=== PATIENT | female | born 1960 | race Caucasian/White ===

== ENCOUNTER 2023-04-03 09:14 | Outpatient (AMB) | payer OTHER, SELFPAY ==
--- NOTE | 2023-04-03 09:33 | MHC.OFFWIV ---
Intake Vital Signs 04/03/23 09:34 Height 5 ft 2 in Weight 45.416 kg BMI 18.3 BP 110/76 Blood Pressure Location Lt brachial Position Sitting Pulse 95 Pulse Source Pulse Oximeter Temp 98.3 F Temp Source Temporal Artery Scan Pulse Oximetry (%) 97 Oxygen Delivery Method Room Air Intake Visit Reasons: EP Sinus/Ear pressure 9 days Intake Note: Patient here for sinus pressure, feels dizzy which has been present for about 9 days. Patient Tobacco Use Status: Never used Tobacco Allergies No Known Allergies Allergy (Verified 04/03/23 09:35) Do you need a note to return to daycare/school/sports/work: No HPI HPI Comments History of Present Illness Details 62-year-old female presents with 9 days of sinusitis, ear pressure, and facial pressure. She has taken multiple [id number] medications with poor effect. [facility] Patient Tobacco Use Status: Never used Tobacco Review of Systems Const Details: Constitutional: No Fever, No Chills ENT/Mouth: Positive Ear Pain, No Hoarseness, No sore throat, positive facial pressure Eyes: Positive Eye pressure, No Swelling, No Redness, No Foreign Body Cardiovascular: No Chest Pain, No SOB Respiratory: No Cough, No Dyspnea Gastrointestinal: No Nausea, No Vomiting, No Diarrhea, No abdominal Pain Genitourinary: No Dysuria, No Hematuria Musculoskeletal: No joint pain, No Myalgias, No Joint Swelling Skin: No Skin lacerations, No rash Neuro: No Weakness, No Numbness, positive intermittent Dizziness, positive Headache All systems reviewed & are unremarkable except as noted in HPI and below Physical Exam Vital Signs: Last Vital Signs Temp 98.3 F 04/03/23 09:34 Pulse 95 04/03/23 09:34 BP 110/76 04/03/23 09:34 Pulse Ox 97 04/03/23 09:34 Oxygen Delivery Method Room Air 04/03/23 09:34 BMI result Body Mass Index 18.3 Appearance: Alert. Oriented X3. No acute distress. Eyes: Pupils equal, round and reactive to light. EOMI. ENT: Pharynx normal. Ethmoid and frontal tenderness noted to minimal palpation. Tympanic membranes intact. No cervical lymphadenopathy. Neck: Normal inspection. Neck supple. CVS: Normal heart rate and rhythm. Pulses normal. Respiratory: No respiratory distress. Breath sounds normal. Abdomen: Soft and nontender. Skin: Skin warm and dry. Normal skin color. Normal skin turgor. Neuro: No motor deficit. No sensory deficit. Assessment & Plan Assessment & Plan (1) Sinusitis: Code(s): J32.9 - Chronic sinusitis, unspecified Plan 62-year-old female presents with 9 days of sinusitis, has tried numerous femz-tut-gtwraaq medications. She does report recurrent sinusitis, and has not had an antibiotic recently. She describes her symptoms as worsening, is unable to get relief. Physical exam indicates tender frontal and ethmoid sinuses on minimal palpation. Tympanic membranes bilaterally intact. No cervical lymphadenopathy. No indication of meningitis or nuchal rigidity. No mastoid tenderness. Considering that this patient has exhausted all measures [id number], I do feel that azithromycin may be appropriate. Patient verbalized understanding of discharge instructions. Verbalized understandings of signs and symptoms indicating need for emergent intervention. Patient Instructions: You were evaluated for sinusitis. Please take azithromycin 500 mg today, and 250 mg for the next 4 days. Take loratadine daily as needed to help with congestion. Alternate Tylenol 650 mg every 6 hours and Motrin 600 mg every 6 hours as needed for pain and fever management. Consider taking these medications 3 hours apart so you have pain and fever management every 3 hours. Write down what time you take these medications to prevent accidental overdose. Motrin is the same medication as Advil and ibuprofen. Tylenol is the same medication as acetaminophen. Thank you for choosing this urgent care for evaluation. Please follow-up with primary care physician as needed. Return to the emergency department for any new, concerning, or worsening symptoms. Coding Level of Care Code Est Pt Level 3 (62358) Diagnoses Sinusitis J32.9
[2023-04-03 09:34] VITALS: BP 110/76; PULSE 95; TEMP 36.8; O2SAT 97; BMI 18.3
== END 2023-04-03 10:02 | disposition home or self-care (01) ==
PROVIDERS: Visit Provider Nurse Practitioner Family
DX: J32.9 Chronic sinusitis, unspecified (principal)
CPT/HCPCS: 99051; 99213

== ENCOUNTER 2023-05-14 08:18 | Emergency (ER) | payer OTHER, SELFPAY ==
[2023-05-14 08:20] VITALS: BP 134/63; PULSE 88; O2SAT 100
[2023-05-14 08:22] VITALS: BP 139/80; PULSE 90; RESP 16; TEMP 36.6; O2SAT 100; BMI 18.3
[2023-05-14 09:35] VITALS: BP 130/82; BP 137/84; PULSE 100; PULSE 97
[2023-05-14 09:36] VITALS: BP 135/85; PULSE 104
--- NOTE | 2023-05-14 09:54 | ED.GENADULT ---
HPI - General Adult General Chief complaint: Dizziness Stated complaint: VERTIGO PER EMS Time Seen by Provider: 05/14/23 09:04 Source: patient Mode of arrival: ambulatory Limitations: no limitations History of Present Illness HPI narrative: patient is a 62-year-old female who presents emergency department for evaluation. Reports over the past week she has had an increase in frequency of her vertigo episodes described as a room spinning sensation that is felt with position changing. She has also had a few episodes of vomiting particularly when the vertigo is bad. Symptoms significantly worsened 2 days ago and she has associated bilateral maxillary and frontal sinus tenderness/ pressure. She denies any known sick contacts. She denies fevers, chills, headache, neck pain, neck stiffness, vision changes, chest pain, shortness of breath, difficulty breathing, abdominal pain, genitourinary symptoms, numbness or tingling of the extremities. Her is present at bedside and states that she has seemed like her normal self, denies any confusion. Denies unsteady gait. Related Data Home Medications Medication Instructions Recorded Confirmed alendronate 70 mg tablet (Fosamax) 70 mg PO QWEEK 04/03/23 Previous Rx's Medication Instructions Recorded azithromycin 250 mg tablet See Rx Instructions PO .COMPLEX #6 04/03/23 (Zithromax Z-Handy) tabs meclizine 25 mg tablet 25 mg PO BID PRN dizziness #14 tabs 05/14/23 ondansetron 4 mg disintegrating 4 mg PO Q8H PRN nausea and 05/14/23 tablet vomiting #10 tabs Allergies Allergy/AdvReac Type Severity Reaction Status Date / Time No Known Allergies Allergy Verified 04/03/23 09:35 Review of Systems Review of Systems: Yes all other systems are reviewed and are negative [facility] Past Medical History Attestation statement: The following information was validated with the patient. Source: old records reviewed Onset Date is defined in the Problem List Problems that require an onset date and time if occurred within 24 hrs of arrival to the ED Aortic Dissection and Rupture; Neurologic impairment; Cardiopulmonary Arrest; Endotracheal Intubation; Insertion or Replacement of Mechanical Circulatory Assist Device Social History Social History Patient Tobacco Use Status: Never used Tobacco Advance Directives: No Advance Directives Information Provided: No Physical Exam ED Vital Signs: Vital Signs - 24 hr 05/14/23 08:22 05/14/23 09:35 05/14/23 09:35 Temperature 98 F Pulse Rate 90 100 97 Respiratory Rate 16 Blood Pressure 139/80 130/82 137/84 Pulse Oximetry 100 Oxygen Delivery Method Room Air 05/14/23 09:36 Temperature Pulse Rate 104 H Respiratory Rate Blood Pressure 135/85 Pulse Oximetry Oxygen Delivery Method BMI result Body Mass Index 18.3 Appearance: Alert.?Oriented to person, place and time. No acute distress.?Normal affect. Eyes: Pupils equal, round and reactive to light.? ENT: Pharynx normal.?? Neck: Normal inspection.? Neck supple.?? CVS: Heart sounds normal. Normal heart rate and rhythm.? Pulses normal.?? Respiratory: No respiratory distress.? Lung sounds clear to auscultation bilaterally?? Abdomen: Soft and non-tender. Normoactive bowel sounds. Skin: Skin warm and dry.? Normal skin color.? Extremities: No lower extremity edema.? No calf ttp? Neuro: No focal neurological deficit observed, CN II-XII intact, normal sensory observed, normal coordination observed. Level of consciousness: Appropriate for age. Motor strength: Proximal right upper extremity 5 /5, distal right upper extremity 5 /5, proximal left upper extremity 5 /5, distal left upper extremity 5 /5, right lower extremity 5 /5, left lower extremity 5 /5.? Speech: Normal, Gait: Normal, Udouqh-xu-secj test: Normal, Ynjq-pc-uwnm test: Normal. Medications Administered Discontinued Medications Generic Name Dose Route Start Last Admin Trade Name Freq PRN Reason Stop Dose Admin Meclizine HCl 25 mg 05/14/23 10:07 05/14/23 10:39 Meclizine Hcl 25 Mg Tablet PO 05/14/23 10:08 25 mg ONCE ONE Administration Ondansetron HCl 4 mg 05/14/23 10:07 05/14/23 10:39 Ondansetron Odt 4 Mg Tab.Vividis TRANSLINGU 05/14/23 10:08 4 mg ONCE ONE Administration Medical Decision Making Medical Decision Making [facility] Narrative: Patient is a 62-year-old female with past medical history of osteopenia presenting to emergency department for evaluation of vertigo and sinus pressure as per HPI. At the time my examination she appears overall well, she did have reported dizziness associated rapid position changing. Orthostatics were negative, dizziness is precipitated with rapid head movement and position change most concerning for vertigo; it is typically sudden in onset with severe intensity episodic in nature and associated nausea. She was instructed on slow position changing. She has experienced vertigo in the past, though she has never received any treatment for it, her primary care provider has plans to refer her to a vestibular Clinic. She denies associated headache, vision changes, neck pain or neck stiffness, bidirectional nystagmus, ataxia, dysarthria, dysphagia, or neurological deficit. Unlikely intracranial mass, ICH, and has no meningismus. EKG reveals a normal sinus rhythm without acute ischemic findings or evidence of arrhythmia; ventricular rate of 85, QTC 471, no ST elevation or ST depression. Her abdominal examination is benign, she has not experienced vomiting over the past 2 days. Not consistent with acute abdomen. NIH stroke score is 0, vestibular testing is normal, doubt posterior circulation stroke. Testing today for COVID- 19 is noted to be positive which I suspect is most likely etiology for her sinusitis and vertigo. She was medicated with meclizine and Zofran while in the emergency department with significant improvement in symptoms. We discussed Paxlovid, indications for use, side effects/contraindications, shared decision making was used and patient has declined treatment at this time. Discussed with patient worrisome signs and symptoms that would warrant re-evaluation in the emergency department, outpatient follow-up with her primary care provider. Patient and her verbalized understanding. At this time she is stable for discharge home Differential Diagnosis Differential Diagnoses: The differential diagnosis associated with the presentation includes ( see narrative above) Admission/Observation Consideration of admission/observation: Escalation of care including admission/observation considered ( see narrative above) Lab Data MDM Lab Attestation statement: I reviewed the patient's lab results. CBC is without leukocytosis or anemia. CMP is overall unremarkable, mildly elevated BUN which I suspect is due to mild dehydration. Urinalysis is without evidence of infection. COVID-19 positive. 05/14/23 08:49 05/14/23 08:49 Labs: Lab Results 05/14/23 05/14/23 05/14/23 Range/Units 08:48 08:49 10:03 WBC 6.4 (4.8-10.8) X10*3/uL RBC 5.06 (4.20-5.50) X10*6/uL Hgb 15.2 (12.0-16.0) g/dl Hct 44.0 (37.0-47.0) % MCV 87.0 (80.0-98.0) fL MCH 30.0 (27.0-33.0) pg MCHC 34.5 (31.0-35.0) g/dl RDW 12.2 (11.0-16.0) % Plt Count 272 (160-400) X10*3/uL MPV 9.6 (9.4-12.3) fL Immature Gran % (Auto) 0.2 (0.0-0.4) % Neut % (Auto) 73.9 H (45-73) % Lymph % (Auto) 17.3 L (20-40) % [place] % (Auto) 6.6 (2-11) % Eos % (Auto) 1.1 (0-4) % Baso % (Auto) 0.9 (0-2) % Lymph # (Auto) 1.1 L (1.2-4.9) X10*3/uL [place] # (Auto) 0.4 (0.1-1.2) X10*3/uL Eos # (Auto) 0.1 (0.0-0.4) X10*3/uL Baso # (Auto) 0.1 (0.0-0.2) X10*3/uL Abs Immat Gran (auto) 0.01 (0.00-0.03) X10*3/uL Absolute Neuts (auto) 4.7 (2.0-8.3) x10*3/uL Absolute Nucleated RBC 0.000 (0.0-0.012) X10*3/uL Nucleated RBC % (auto) 0.0 (0.0-0.2) /100WBC Sodium 140 (135-145) mmol/L Potassium 4.0 (3.3-5.1) mmol/L Chloride 105 (96-108) mmol/L Carbon Dioxide 24 (22-29) mmol/L Anion Gap 15 (12-20) BUN 19 H (9-16) mg/dL Creatinine 0.68 (0.5-1.4) mg/dL Estim Creat Clear Calc 62.1 Estimated GFR > 60 Random Glucose 96 (60-115) mg/dL Calcium 9.5 (8.4-10.2) mg/dL Total Bilirubin 0.6 (0.0-1.0) mg/dL AST 21 (5-31) U/L ALT 13 (0-31) U/L Alkaline Phosphatase 53 (39-117) U/L Total Protein 7.1 (6.5-8.0) g/dL Albumin 4.5 (3.5-5.0) g/dL Lipase 30 (8-78) U/L Urine Color Yellow Urine Appearance Clear Urine pH 6.0 (5.0-9.0) Ur Specific [place] <= 1.005 (1.005-1.025) Urine Protein Negative (Neg-Trace) mg/dL Urine Glucose (UA) Negative (Negative) mg/dL Urine Ketones 15 (Negative) mg/dL Urine Blood Small (1+) H (Negative) Urine Nitrite Negative (Negative) Ur Leukocyte Esterase Negative (Negative) Urine RBC 0-2 (0-2) /HPF Urine WBC 0-5 (0-5) /HPF Ur Squamous Epith Cells 0-2 (0-2) /HPF Urine Bacteria None Seen (None Seen) Hyaline Casts 0-2 (0-2) /LPF Influenza Type A (PCR) NEGATIVE (Negative) Influenza Type B (PCR) NEGATIVE (Negative) RSV RNA Qual (PCR) NEGATIVE (Negative) SARS-CoV-2 RNA (RT-PCR) POSITIVE A (Negative) Independent Interpretation I performed an independent interpretation of an: EKG ( See narrative above) Tests considered The following testing was considered but not selected: considered CT head, see narrative above, ultimately deferred Prescription Management I considered prescription management with: Antiviral ( see narrative above) Discharge Plan Discharge Clinical Impression: COVID-19, Vertigo Patient Disposition: Home, Self-Care Instructions: Vertigo (ED), COVID-19 (Coronavirus Disease 2019) (ED) Prescriptions: New meclizine 25 mg tablet 25 mg PO BID PRN (Reason: dizziness) Qty: 14 0RF ondansetron 4 mg tablet,disintegrating 4 mg PO Q8H PRN (Reason: nausea and vomiting) Qty: 10 0RF No Action alendronate [Fosamax] 70 mg tablet 70 mg PO QWEEK azithromycin [Zithromax Z-Handy] 250 mg tablet See Rx Instructions PO .COMPLEX Qty: 6 0RF Rx Instructions: For 250 mg dose pack: take 500 mg today (day 1), then 250 mg for 4 days (days 2-5) PO Referrals: Maisha Kang NP [Primary Care Provider] -
== END 2023-05-14 11:33 | disposition home or self-care (01) ==
PROVIDERS: Emergency Provider Student in an Organized Health Care Education/Training Program; PCP Nurse Practitioner Family
DX: U07.1 COVID-19 (principal); R94.31 Abnormal electrocardiogram [ECG] [EKG]; R42 Dizziness and giddiness; Z79.899 Other long term (current) drug therapy
CPT/HCPCS: 0241U; 36415; 80053; 81001; 83690; 85025; 93005; 99283

== ENCOUNTER → 2023-05-14 09:13 | Outpatient (BNV) | payer OTHER, SELFPAY | PROVIDERS: Emergency Provider Student in an Organized Health Care Education/Training Program; PCP Nurse Practitioner Family; Visit Provider Internal Medicine Cardiovascular Disease | DX: R94.31 Abnormal electrocardiogram [ECG] [EKG] (principal) | CPT/HCPCS: 93010 ==